=== PATIENT | male | born 1985 | race American Indian/Alaskan Native ===

== ENCOUNTER 2021-01-10 08:32 | Emergency (ER) | payer OTHER ==
--- NOTE | 2021-01-10 11:07 | Emergency Department Report ---
Chief Complaint: Pain General Stated Complaint: BODYACHES Time Seen by Provider: 01/10/21 10:20 - HPI History of Present Illness: Patient is a 35-year-old male presents emergency room complaints of body aches, chills, mild fatigue that began 2 days ago. He denies any fever, nausea, vomiting, diarrhea, chest pain, cough, shortness of breath, abdominal pain, dark urine, urinary symptoms. Past medical history of asthma but has not had to use an inhaler in a very long time. No allergies to medications. He is a non-smoker. He has not received the COVID-19 vaccine. He has not received COVID-19 testing since beginning to feel sick. Vitals are stable All other systems reviewed and are negative except as documented in HPI on exam: Non toxic appearing, no acute distress atraumatic, normocephalic normal appearance of the eyes, EOMI, no periorbital edema or ecchymosis moist mucus membranes, normal oropharynx, no tonsillar hypertrophy or exudates, TMs and canals are normal bilaterally regular heart rate and rhythm, no gallops, no rubs, no murmurs breath sounds are clear bilaterally, no w/r/r, no stridor, no respiratory distress, no accessory muscle use A&O x4, no focal neuro deficit skin is warm, dry, intact Patient is presenting with symptoms which could be related to viral URI He has stable vitals with no fever or hypoxia He is not having any difficulty breathing His breath sounds are clear bilaterally and he has no clinical signs of acute bacterial pneumonia or bacterial bronchitis Discussed supportive care and symptomatic treatment with patient Discussed the importance of primary care follow-up Discussed return precautions Advised outpatient COVID-19 testing and to quarantine as necessary Medical screen examination performed and there is no threat to life or limb at this time - Exam Vital Signs: Vital Signs 01/10/21 09:27 Temperature 98.0 F Pulse Rate 73 Respiratory 18 Rate Blood Pressure 143/92 O2 Sat by Pulse 98 Oximetry MSE screening note: Focused history and physical exam performed. ED Disposition for MSE Clinical Impression: Encounter for medical screening examination Disposition: TO HOME OR SELFCARE Is pt being admited?: No Does the pt Need Aspirin: No Condition: Stable Instructions: Viral Respiratory Infection, [id number] Additional Instructions: May take Tylenol or ibuprofen as needed for pain or fever. Increase your fluid intake. May take Mucinex or TheraFlu for any cough or cold symptoms. Follow-up with your primary care doctor for reexamination. Return to emergency room for any new or worsening symptoms. Commend for you to get outpatient COVID-19 testing and quarantine as necessary. Referrals: ALIE SINCLAIR MD [Staff Physician] - 2-3 Days [facility] [Provider Group] - 2-3 Days Time of Disposition: 11:06 Print Language: [place]
[2021-01-10 11:28] VITALS: BP 140/86
== END 2021-01-10 12:33 | disposition home or self-care (01) ==
LOC: ED 08:32
DX: Z13.9 Encounter for screening, unspecified (principal)
CPT/HCPCS: 99281